=== PATIENT | male | born 1950 | race Caucasian/White ===

== ENCOUNTER 2017-08-22 08:12 | Day surgery (SDC) | payer OTHER ==
[~2017-08-22] VITALS: Ht 172.7 cm; Wt 72.6 kg
[2017-08-22 08:38] VITALS: BP 117/70
[2017-08-22 08:53] LABS: PLATELET COUNT 198 x10^3mcL (130-400)
[2017-08-22 08:54] VITALS: BP 117/70
[2017-08-22 08:57] LABS: RED CELL DISTRIBUTION WIDTH 17.2 % (11.5-14.5)
[2017-08-22 09:01] LABS: CARBON DIOXIDE 25.3 mmol/L (21-32); CHLORIDE SERUM 103 mmol/L (98-107); CREATININE SERUM 0.9 mg/dL (0.7-1.3); GFR1 > 60 mL/min; GLUCOSE SERUM 113 mg/dL (74-106); POTASSIUM SERUM 3.9 mmol/L (3.5-5.1); SODIUM SERUM 137 mmol/L (136-145)
[2017-08-22 09:06] LABS: ALKALINE PHOSPHATASE 671 U/L (46-116); ALT/SGPT 348 U/L (16-63); AST/SGOT 218 U/L (15-37); TOTAL PROTEIN, SERUM 7.1 g/dL (6.4-8.2)
[2017-08-22 09:07] LABS: ALBUMIN 2.7 g/dL (3.4-5.0)
[2017-08-22 09:12] LABS: BILIRUBIN TOTAL 15.57 mg/dL (0.20-1.00)
[2017-08-22 09:19] LABS: BAND NEUTROPHIL 1 % (0-10); BASOPHIL 0 % (0-2); MONOCYTE 16 % (0-7); SEGMENTED NEUTROPHILS 64 % (37-75)
[2017-08-22 09:21] LABS: rbc morphology (normal/abnorm) ABNORMAL (NORMAL); target cell (codocyte) 1+; tear drop cell (dacryocyte) 1+
[2017-08-22 14:03] VITALS: BP 138/67
== END 2017-08-22 14:00 | disposition home or self-care (01) ==
LOC: GI 08:12 → OR 11:30 → GI 11:30
PROVIDERS: Internal Medicine
PROC: 0FB98ZX Excision of Common Bile Duct, Via Natural or Artificial Opening Endoscopic, Diagnostic (ICD-10-PCS; 2017-08-22)
PROC: 0F798DZ Dilation of Common Bile Duct with Intraluminal Device, Via Natural or Artificial Opening Endoscopic (ICD-10-PCS; principal; 2017-08-22 11:30)
PROC: 0F7D8DZ Dilation of Pancreatic Duct with Intraluminal Device, Via Natural or Artificial Opening Endoscopic (ICD-10-PCS; 2017-08-22 11:30)
PROC: 0FC98ZZ Extirpation of Matter from Common Bile Duct, Via Natural or Artificial Opening Endoscopic (ICD-10-PCS; 2017-08-22 11:30)
DX: K83.8 Other specified diseases of biliary tract (principal); I10 Essential (primary) hypertension; E66.9 Obesity, unspecified; Z68.24 Body mass index [BMI] 24.0-24.9, adult
CPT/HCPCS: 43262; C1769; C2617; C2625; J0696; J1610; J2704; J7120; Q9967

== ENCOUNTER 2017-09-19 07:04 | Day surgery (SDC) | payer OTHER ==
[~2017-09-19] VITALS: Ht 172.7 cm; Wt 72.1 kg
[2017-09-19 07:38] VITALS: BP 145/84
[2017-09-19 13:20] VITALS: BP 132/74
== END 2017-09-19 12:40 | disposition home or self-care (01) ==
LOC: GI 07:04 → OR 09:30 → GI 12:40
PROVIDERS: Internal Medicine
PROC: 0FB98ZX Excision of Common Bile Duct, Via Natural or Artificial Opening Endoscopic, Diagnostic (ICD-10-PCS; 2017-09-19)
PROC: 0FPB8DZ Removal of Intraluminal Device from Hepatobiliary Duct, Via Natural or Artificial Opening Endoscopic (ICD-10-PCS; principal; 2017-09-19 09:30)
DX: K83.1 Obstruction of bile duct (principal); I10 Essential (primary) hypertension; Z68.24 Body mass index [BMI] 24.0-24.9, adult
CPT/HCPCS: 43260; J1200; J1610; J2250; J2310; J2704; J3010; J3490; J7120; Q9967